=== PATIENT | male | born 1960 | race Hispanic/Latino ===

== ENCOUNTER → 2022-01-29 16:01 | Outpatient (CLI) | payer OTHER, SELFPAY ==
--- NOTE | 2022-01-29 | DI.ECHO.S_ITS ---
[facility]---------+ [facility] +---------+ : : [address] : [address] : : : : [id number] : : : : Phone: [phone]---------+ Echocardiogram Report + + :Name: LORIE MCCORMACK Study Date: 01/29/2022 Height: 74 in : :[facility] ReadingLocation: Weight: 264 lb : : Gender: Male BSA: 2.4 m2 : :: 1960 Age: 61 yrs BP: 138/78 mmHg: :Reason For Study: DYSPNEA : :Ordering Physician: BREA, : :ANJALI Performed By: Deborah Osman : :Referring: ANJALI ROMERO : + + Interpretation Summary 1) Normal left ventricular size and thickness with low normal systolic function (EF 50-55%). 2) There are no obvious focal wall motion abnormalities noted but poor endocardial definition reduces the sensitivity for the detection of such. 3) Normal right ventricular size and function. 4) No significant valvular abnormalities. 5) The ascending aorta is mildly enlarged at 3.8cm. 6) No prior Echo available for comparison. Procedure: A two-dimensional transthoracic echocardiogram with color flow and Doppler was performed. The study quality was technically adequate. There is no prior echocardiogram noted for this patient. The patient was in sinus rhythm with heart rates between 68-81 bpm during the exam. Left Ventricle: The left ventricle is normal in size and wall thickness. The ejection fraction is estimated to be 50-55%. There are no obvious focal wall motion abnormalities noted but poor endocardial definition reduces the sensitivity for the detection of such. Right Ventricle: The right ventricle is normal in size and function. Atria: The left atrial size is normal. Right atrial size is normal. There is no Doppler evidence for an interatrial shunt. Mitral Valve: The mitral valve is normal in structure and function. There is trace mitral regurgitation. Aortic Valve: The aortic valve is trileaflet. The aortic valve opens well. There is no aortic valve stenosis. No aortic regurgitation is present. Tricuspid Valve: The tricuspid valve is normal in structure and function. There is trace tricuspid regurgitation. Pulmonary artery pressures cannot be estimated because of the lack of a measurable TR jet velocity. Pulmonic Valve: The pulmonic valve leaflets are thin and pliable; valve motion is normal. There is no pulmonic valvular regurgitation. Great Vessels: The aortic root is normal size. The ascending aorta is mildly enlarged. The IVC is dilated (diameter is greater than 2.1 cm) yet it collapses greater than 50% with a sniff. This suggests a right atrial pressure of 8 mm Hg. Pericardium/ Pleura There is no pericardial effusion. There is no pleural effusion. MMode/2D Measurements & Calculations LVIDd: 5.5 cm LVOT diam: 2.7 cm LVIDs: 3.4 cm Ao root diam: 3.6 cm FS: 37.3 % asc Aorta Diam: 3.8 cm IVSd: 0.99 cm Ao Arch Diam (Prox Trans): 4.1 cm LVPWd: 0.91 cm LV reese. diameter/BSA (cm/m^2): 2.2 LV sys. diameter/BSA (cm/m^2): 1.4 LA A2 area: 22.2 cm2 RA long axis: 5.6 cm LA A4 area: 21.3 cm2 RA area: 18.7 cm2 LA length (vol): 5.8 cm RA vol: 53.3 ml LA vol: 69.7 ml RA : 21.8 ml/m2 LA vol index: 28.5 ml/m2 IVC diam: 2.1 cm RVD1 (basal): 3.6 cm RVD2 (mid): 3.3 cm TAPSE: 2.5 cm Doppler Measurements & Calculations Ao V2 max: 135.3 cm/sec LVOT Max Mohan: 93.2 cm/sec Ao V2 mean: 97.0 cm/sec LV V1 max P.5 mmHg Ao max P.3 mmHg LV V1 VTI: 20.6 cm Ao mean P.1 mmHg TIARA(I,D): 4.3 cm2 Ao V2 VTI: 26.6 cm TIARA(V,D): 3.8 cm2 sev ratio: 0.77 TIARA indexed to BSA (cm^2/m^2): 1.8 MV E max mohan: 62.8 cm/sec PA V2 max: 78.8 cm/sec MV A max mohan: 72.8 cm/sec PA V2 mean: 53.4 cm/sec MV E/A: 0.86 PA mean P.3 mmHg Med Peak E' Mohan: 5.8 cm/sec PA pr(Accel): 43.0 mmHg E/E' med: 10.8 Lat Peak E' Mohan: 9.1 cm/sec E/E' lat: 6.9 E/e' average: 8.9 MV dec time: 0.28 sec SV(LVOT): 113.8 ml Reading Physician:10:14 AM
== END ==
PROVIDERS: Referring Provider Internal Medicine Cardiovascular Disease; Visit Provider Internal Medicine Cardiovascular Disease
DX: I77.89 Other specified disorders of arteries and arterioles (principal); R06.09 Other forms of dyspnea; R53.83 Other fatigue
CPT/HCPCS: 93306

== ENCOUNTER → 2022-01-31 07:44 | Outpatient (CLI) | payer OTHER, SELFPAY ==
--- NOTE | 2022-01-31 07:48 | DI.NM.S_ITS ---
PROCEDURE: NM EXERCISE TREADMILL NON NUC COMPARISON: None. INDICATIONS: Other fatigue FINDINGS: The patient exercised for 4 minutes and 55 seconds reaching 101% of maximum predicted heart rate (7.0 METs, JACQUES +39%). No angina and no diagnostic ECG changes with exercise. Rare PACs and rare PVCs present. IMPRESSION: Low risk, normal treadmill ECG only stress test with reduced exercise capacity (JACQUES +39%). No diagnostic ischemic changes and no angina with exercise. Dictated by: Enrrique Romero MD on 01/31/2022 at 15:50 Approved by: Enrrique Romero MD on 01/31/2022 at 15:53
[2022-01-31 08:32] LABS: COVID19 -Nasal RAPID Negative (Negative)
== END ==
PROVIDERS: Referring Provider Internal Medicine Cardiovascular Disease; Visit Provider Internal Medicine Cardiovascular Disease
DX: R53.83 Other fatigue (principal); Z20.822 Contact with and (suspected) exposure to COVID-19
CPT/HCPCS: 87635; 93017